=== PATIENT | male | born 1985 | race African-American/Black ===

== ENCOUNTER 2019-01-22 09:15 | Emergency (ER) | payer OTHER ==
[2019-01-22] MEDS ORDERED: Morphine 4 MG/ML VIAL ONE (09:49)
[2019-01-22] MEDS ORDERED: Ondansetron ODT 4 MG TAB ONE (09:49)
[2019-01-22] MEDS ORDERED: Adacel (T-DAP) 0.5 ML SYRINGE ONE (09:49)
[2019-01-22] MEDS ORDERED: Lidocaine 1% w/Epinephrine 1:100K 20 ML VIAL ONE (10:35)
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
[2019-01-22] MEDS ORDERED: Triple Antibiotic Oint 1 GM Packet ONE (12:20)
== END 2019-01-22 12:40 | disposition home or self-care (01) ==
LOC: ERS 09:15
DX: S51.812A Laceration without foreign body of left forearm, initial encounter (principal); I10 Essential (primary) hypertension; W20.8XXA Other cause of strike by thrown, projected or falling object, initial encounter
CPT/HCPCS: 12034; 90471; 90715; 96372; J2001; J2270; Q0162

== ENCOUNTER 2020-03-13 19:13 | Emergency (ER) | payer SELFPAY ==
[~2020-03-13 19:13] MED LIST: Iopamidol-370 76% 500 ML 1 ML ONE
[2020-03-13] MEDS ORDERED: Morphine 4 MG/ML VIAL ONE (19:58)
[2020-03-13] MEDS ORDERED: Ketorolac Tromethamine 30 MG/ML VIAL ONE (19:58)
[2020-03-13 20:03] LABS: #Basophils 0.1 thou/uL (0.0-0.2); #Eosinphils 0.2 thou/uL (0.0-0.7); #Monocytes 1.1 thou/uL (0.11-0.59); #Neutrophils 3.7 thou/uL (1.40-6.50); %Basophils 1.5 % (0.0-1.0); %Eosinophils 2.1 % (0.0-10.0); %Lymphocytes 37.2 % (21.0-51.0); %Monocytes 13.3 % (0.0-10.0); Hemoglobin 14.5 g/dL (14.0-18.0); Mean Corpuscular HGB CONC 33.7 g/dL (32.0-36.0); Mean Corpuscular Hemoglobin 29.9 pg (27.0-31.0); Mean Corpuscular Volume 88.9 fL (78.0-98.0); Mean Platelet Volume 8.3 fL (7.4-10.4); Platelet Count 279 thou/uL (130-400); RBC Distribution Width 13.9 % (11.5-14.5); Red Blood Cell (RBC) Count 4.84 mill/uL (4.70-6.10); White Blood Cell (WBC) Count 8.1 thou/uL (4.8-10.8)
[2020-03-13 20:29] LABS: ALT (SGPT) 27 U/L (8-55); AST (SGOT) 24 U/L (5-34); Alkaline Phosphatase 63 U/L (40-110); Anion Gap 13 mmol/L (10-20); BUN (Urea Nitrogen) 13 mg/dL (8.9-20.6); Bilirubin, Total 0.3 mg/dL (0.2-1.2); Calc. Creatinine Clearance 0 mL/min (70-130); Carbon Dioxide 24 mmol/L (22-29); Chloride 109 mmol/L (98-107); Estimated GFR-MDRD 68; Globulin 3.2 g/dL (2.4-3.5); Glucose 104 mg/dL (70-105); Magnesium 1.8 mg/dL (1.6-2.6); Potassium 3.7 mmol/L (3.5-5.1); Protein, Total 7.2 g/dL (6.0-8.3); Sodium 142 mmol/L (136-145)
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
[2020-03-13] MEDS ORDERED: HYDROcodone/Acetaminophen 5/325 mg Tablet ONE (21:41)
== END 2020-03-13 22:52 | disposition home or self-care (01) ==
LOC: ERS 19:13
DX: S60.212A Contusion of left wrist, initial encounter (principal); I10 Essential (primary) hypertension; V89.2XXA Person injured in unspecified motor-vehicle accident, traffic, initial encounter
CPT/HCPCS: 70450; 71045; 72125; 74177; 80053; 83735; 84484; 85025; 93005; 96374; 96375; J1885; J2270; Q9967